=== PATIENT | female | born 1960 | race Caucasian/White ===

== ENCOUNTER → 2016-09-27 | Outpatient (CLI) | payer BC ==
--- NOTE | 2016-09-27 11:22 | REP ---
LUMBOSACRAL SPINE SERIES: Five views lumbosacral spine performed. No compression fracture is seen. There is normal alignment and lumbar lordosis. Posterior rods and screws are seen at L4 and L5 fusing those levels. There is mild diffuse spurring. There is minimal anterior listhesis of L4 on L5. Disc spaces are relatively well maintained. Posterior elements are intact. IMPRESSION: No fracture. Slight anterior listhesis of L4 on L5 with posterior fusion of L4-5. Mild diffuse degenerative changes. Signed by Eliazar Coats MD 09/27/2016 08:31 P
== END ==
LOC: M WUC 08:41
PROVIDERS: ATTEND Physician Assistant
DX: M54.5 Low back pain (principal)

== ENCOUNTER → 2016-11-28 | Outpatient (REF) | payer BC ==
[2016-11-28 14:27] LABS: PERCENT SATURATION 22.2 % (13.2-37.4)
== END ==
LOC: M LAB REF 13:08
PROVIDERS: ATTEND Internal Medicine Medical Oncology
DX: E83.110 Hereditary hemochromatosis (principal)

== ENCOUNTER → 2017-03-06 | Outpatient (REF) | payer BC ==
[2017-03-06 19:20] LABS: PERCENT SATURATION 22.2 % (13.2-45.0)
== END ==
LOC: M LAB REF 16:37
PROVIDERS: ATTEND Internal Medicine Medical Oncology
DX: E83.119 Hemochromatosis, unspecified (principal)

== ENCOUNTER → 2017-06-10 | Outpatient (REF) | payer BC ==
[2017-06-10 19:39] LABS: PERCENT SATURATION 31.7 % (13.2-45.0)
== END ==
LOC: M LAB REF 17:30
PROVIDERS: ATTEND Internal Medicine Medical Oncology
DX: E83.110 Hereditary hemochromatosis (principal)

== ENCOUNTER → 2017-10-30 | Outpatient (REF) | payer BC ==
[2017-10-30 18:42] LABS: FERRITIN 9 NG/ML (8-252); IRON (FE) 95 UG/DL (50-170); PERCENT SATURATION 24.5 % (13.2-45.0); TOTAL IRON BINDING CAPACITY 388 UG/DL (250-450)
== END ==
LOC: M LAB REF 17:19
DX: D50.9 Iron deficiency anemia, unspecified (principal); E83.119 Hemochromatosis, unspecified
CPT/HCPCS: 83550